=== PATIENT | male | born 1990 | race Caucasian/White ===

== ENCOUNTER → 2019-08-18 08:33 | Outpatient (CLI) | payer BC, SELFPAY ==
--- NOTE | 2019-08-18 08:37 | XR_ITS ---
PROCEDURE: XR KNEE LT 4V CLINICAL INDICATION: lt knee pain; weightbearing COMPARISON: XR KNEE LT 3V from 07/31/2019 FINDINGS: No fracture or dislocation. No lytic or blastic change. There is normal mineralization. There are mild osteoarthritic changes involving all 3 compartments Other findings:Small calcific density along the anterior aspect patella at the quadriceps insertion which may reflect sequela from old injury IMPRESSION: Mild osteoarthritis not significantly changed Dictated by: Yunier Casiano MD 08/18/2019 13:15 Electronically signed by Yunier Casiano MD in [place] 08/18/2019 13:15
== END ==
PROVIDERS: PCP Internal Medicine; Visit Provider Orthopaedic Surgery
DX: M25.562 Pain in left knee (principal)
CPT/HCPCS: 73564

== ENCOUNTER 2020-02-25 17:02 | Emergency (ER) | payer BC, SELFPAY ==
[2020-02-25 17:44] VITALS: BP 136/81; PULSE 104; RESP 20; TEMP 37.6; O2SAT 100; BMI 38.9
--- NOTE | 2020-02-25 17:44 | HMH.EDUTC ---
[facility] [place] Clinical Impression: Viral syndrome Sinusitis Qualifiers: Sinusitis location: unspecified location Chronicity: acute Recurrence: non-recurrent Qualified Code(s): J01.90 - Acute sinusitis, unspecified Disposition: Home, Self-Care Condition on Discharge: Good Instructions: Sinusitis, DI for Sinusitis Additional Instructions: Drink plenty of fluids. Take tylenol or ibuprofen for pain or fever. Take the medications as directed. Follow up with your regular doctor. GO TO THE ER FOR ANY WORSENING SYMPTOMS Prescriptions: Benzonatate [Tessalon Perle 100mg Cap] 100 mg PO TIDP PRN #30 cap PRN Reason: Cough Transmission Status: Received by [id number] Azithromycin [Z-Kvng 250mg Tab*] 250 mg PO UD DOSE PK #6 tab Transmission Status: Received by [id number] Referrals: Abdulaziz Vidal [Primary Care Provider] - Forms: Work/School Release Time of Disposition: 17:59 Medical Decision Making - Medical Records Medical records reviewed: No: I reviewed the patient's medical records. - Issac Inquiry Pt receiving controlled substance: No Vital Signs: 02/25/20 17:44 02/25/20 18:05 Temperature 99.7 F H 99.7 F H Temperature Source Oral Pulse Rate 104 H Pulse Rate [Right Brachial] 104 H Respiratory Rate 20 20 Blood Pressure 136/81 Blood Pressure [Right Arm] 136/81 Blood Pressure Mean [Right Arm] 99 Blood Pressure Source [Right Arm] Automatic Cuff Blood Pressure Position [Right Arm] Sitting 02 Sat by Pulse Oximetry 100 Oxygen Delivery Method Room Air Orders (Tests/Meds): ORDERS Category Date Time Status Covid-19 Nasal PCR ([facility]) Routine Lab 02/25/20 17:40 [place] [facility] [place] - General Stated complaint: Covid test Time Seen by Provider: 02/25/20 17:44 - History of Present Illness Provider Complaint: He complains of having body aches, feeling very bad, having sinus congestion and a cough since last night. He denies any definite covid exposure, but he works at [employer] so he is around a lot of people. - Related Data Previous Rx's Medication Instructions Recorded Azithromycin [Z-Kvng 250mg Tab*] 250 mg PO UD DOSE PK #6 tab 02/25/20 Benzonatate [Tessalon Perle 100mg 100 mg PO TIDP PRN #30 cap 02/25/20 Cap] Allergies Allergy/AdvReac Type Severity Reaction Status Date / Time No Known Allergies Allergy Verified 08/18/19 09:22 [facility] History - Hepatitis A Screen Attestation statement:: This patient has been screened for Hepatitis A risk factors. I have reviewed the patient's past medical history: Yes Medical History: Denies:: Diabetes Mellitus Type 1, Seizures Other Medical History: Reports: Other Other Surgeries: Yes: No Previous Surgery, Other Comment: excision of pilonidal cyst 2007/2008. [place] teeth - Social History Smoking Status: Never smoker Tobacco Type: smokeless tobacco # Packs/Day (cigarettes): 0 Alcohol Intake: never Alcohol Intake Frequency:: holidays/special occasions only Substance Use Type: denies use Occupational Status: other Household Members: spouse Family Hx:: Cancer, Diabetes, Coronary Artery Disease ROS Obtained: Yes All systems reviewed & no additional complaints - Constitutional Constitutional: Reports chills, Reports fever(s), Reports poor appetite, Reports malaise - Eyes Eyes: Denies eye discharge - ENT Ears, Nose, Mouth, and Throat: Reports system reviewed and no additional complaints, except as docu - Cardiovascular Cardiovascular: Reports system reviewed and no additional complaints, except as docu - Respiratory Respiratory: Yes chest congestion, Yes cough - Gastrointestinal Gastrointestingal: Reports: nausea. Denies: abdominal pain, diarrhea, vomiting Physical Exam - General General appearance: alert, in no apparent distress - Head Head exam: atraumatic, normocephalic, normal inspection - Eye Eye exam: Present: normal appearance, PERRL, EOMI - ENT ENT exam: Pres
[2020-02-25 18:05] VITALS: BP 136/81; PULSE 104; RESP 20; TEMP 37.6; O2SAT 100
== END 2020-02-25 18:08 | disposition home or self-care (01) ==
PROVIDERS: Emergency Provider Nurse Practitioner Family; PCP Internal Medicine
DX: Z20.828 Contact with and (suspected) exposure to other viral communicable diseases (principal); B34.9 Viral infection, unspecified; J01.90 Acute sinusitis, unspecified
CPT/HCPCS: 99201; U0003

== ENCOUNTER 2020-10-14 07:23 | Emergency (ER) | payer BC, SELFPAY ==
[2020-10-14 07:24] VITALS: BP 157/84; PULSE 78; RESP 16; TEMP 36.7; O2SAT 98; BMI 41.3
--- NOTE | 2020-10-14 07:41 | XR_ITS ---
PROCEDURE INFORMATION: Exam: XR Right Wrist Exam date and time: 10/14/2020 7:41 AM Age: 30 years old Clinical indication: Patient HX: No definite injury; Right wrist pain, radial side TECHNIQUE: Imaging protocol: XR Right wrist. Views: 3 or more views. COMPARISON: No relevant prior studies available. FINDINGS: Bones/joints: There is no evidence of acute fracture.There is no evidence of malalignment or dislocation. Soft tissues: Normal. IMPRESSION: There is no evidence of acute fracture.There is no evidence of malalignment or dislocation.
--- NOTE | 2020-10-14 08:04 | HMH.EDUPEXT ---
ED Disposition Clinical Impression: Sprain of wrist, right Qualifiers: Encounter type: initial encounter Qualified Code(s): S63.501A - Unspecified sprain of right wrist, initial encounter Disposition: Home, Self-Care Condition on Discharge: Good Instructions: DI for Wrist Strain Additional Instructions: wear splint and use meds and see pcp for follow up Prescriptions: predniSONE [Prednisone 20mg Tab] 20 mg PO BID #10 tab Transmission Status: Pending to [facility] Ketorolac Tromethamine [Toradol 10mg tablet] 10 mg PO Q6HP PRN #8 tab MDD 40mg/day PRN Reason: Moderate To Severe Pain Transmission Status: Pending to [facility] Referrals: Abdulaziz Vidal [Primary Care Provider] - - Critical Care Critical Care Time: No Attestation: On 10/14/20, the high probability of a clinically significant, sudden or life threatening deterioration of the following system(s) required my full and direct attention, intervention and personal management. The time I documented below is in addition to time spent performing reported procedures but includes the following listed in this critical care notation. Medical Decision Making - Medical Records Medical records reviewed: Yes: I reviewed the patient's medical records. - Issac Inquiry Pt receiving controlled substance: No Vital Signs: 10/14/20 07:24 Temperature 98.1 F Temperature Source Oral Pulse Rate [Right] 78 Respiratory Rate 16 Blood Pressure [Right Arm] 157/84 H Blood Pressure Mean [Right Arm] 108 02 Sat by Pulse Oximetry 98 Oxygen Delivery Method Room Air - Lab Data Lab results reviewed: Yes: I reviewed the patient's lab results. Orders (Tests/Meds): ED MEDICATIONS Discontinued Medications Generic Name Dose Route Start Last Admin Trade Name Freq PRN Reason Stop Dose Admin Dexamethasone Sodium Phosphate 8 mg 10/14/20 08:07 10/14/20 08:12 Dexamethasone 4mg/Ml 1ml Vial IM 10/14/20 08:08 8 mg ONCE ONE Administration Ketorolac Tromethamine 60 mg 10/14/20 08:08 10/14/20 08:11 Ketorolac 60mg/2ml Vial IM 10/14/20 08:09 60 mg ONCE ONE Administration ORDERS Category Date Time Status XR wrist RT min 3V Stat Exams 10/14/20 07:41 Taken - Radiology Data #1 Image(s): Wrist Image Reviewed: Yes I reviewed the patient's radiology image w/the ED provider Preliminary Findings: No Fracture Seen Medical Decision Narrative: pt with overuse injury rt wrist at work - will splint and use meds - and workman comp forms completed Upper Extremity HPI - General Chief Complaint: Extremity Injury, Upper Stated Complaint: Rt wrist pain, no accident Time Seen by Provider: 10/14/20 07:50 Mode of Arrival: Family Vehicle Source of Information: Patient, Medical Record Limitations: No Limitations Description of Symptoms (Recalled from ER Triage Doc. by RN): Patient c/o right wrist pain for the last two days w/o any identifiable injury. 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 Upon assessment, patient has swelling on the distal side of his right wrist and reports pain that radiates to his hand. - History of Present Illness HPI narrative: wrist injury at work using wrench and has pain to rt lat wrist - MD complaint: injury to: right, wrist Onset (ago): hour(s) Other Extremity Injury: Right: wrist Handedness: right Place: work Severity: moderate Relieving factors: movement Exacerbating factors: movement of extremity Context: other (injured at work ) Associated symptoms: denies other symptoms - Related Data Previous Rx's Medication Instructions Recorded Azithromycin [Z-Kvng 250mg Tab*] 250 mg PO UD DOSE PK #6 tab 02/25/20 Benzonatate [Tessalon Perle 100mg 100 mg PO TIDP PRN #30 cap 02/25/20 Cap] Ketorolac Tromethamine [Toradol 10 mg PO Q6HP PRN #8 tab MDD 10/14/20 10mg tablet] 40mg/day predniSONE [Prednisone 20mg 20 mg PO BID #10 tab 10/14/20 Tab
[2020-10-14 08:40] VITALS: BP 129/80; PULSE 84; RESP 17; TEMP 36.8; O2SAT 99
== END 2020-10-14 08:46 | disposition home or self-care (01) ==
PROVIDERS: Emergency Provider Emergency Medicine; PCP Internal Medicine
DX: S63.501A Unspecified sprain of right wrist, initial encounter (principal); X50.3XXA Overexertion from repetitive movements, initial encounter; Y92.89 Other specified places as the place of occurrence of the external cause
CPT/HCPCS: 73110; 99282

== ENCOUNTER → 2023-04-01 16:06 | Outpatient (CLI) | payer BC, SELFPAY ==
[2023-04-01 13:52] LABS: Basophils # 0.1 K/mm3 (0-0.2); Basophils % 0.8 % (0.1-2.0); Eosinophils # 0.2 K/mm3 (0.0-0.4); Eosinophils % 2.1 % (0.1-12.0); Hematocrit 44.6 % (42.0-52.0); Hemoglobin 15.1 g/dL (14.1-18.0); Lymphocytes # 1.9 K/mm3 (0.7-4.5); Lymphocytes % 24.8 % (10-50); Mean Corpuscular HGB Conc 33.9 g/dL (31.8-35.4); Mean Corpuscular Hemoglobin 31.1 pg (27.0-31.2); Mean Corpuscular Volume 91.7 fl (80-94); Mean Platelet Volume 8.3 fl (7.4-10.4); Monocytes # 0.5 K/mm3 (0.1-1.0); Monocytes % 6.1 % (1.7-9.3); Neutrophils # 4.9 K/mm3 (1.8-7.8); Neutrophils % 66.1 % (37.0-80.0); Platelet Count 294 K/mm3 (142-424); Red Blood Count 4.86 M/mm3 (4.60-6.20); Red Cell Distribution Width 13.6 % (11.5-17.5); White Blood Count 7.4 K/mm3 (4.8-10.8)
[2023-04-01 14:29] LABS: Hemoglobin A1C 6.5 % (4.0-6.0)
[2023-04-01 14:41] LABS: Alanine Aminotransferase 108 U/L (12-78); Albumin Level 4.6 g/dl (3.5-5.0); Albumin/Globulin Ratio 1.4 (1.1-1.8); Alkaline Phosphatase 76 U/L (38-126); Anion Gap 14.7 mEq/L (5-15); Aspartate Amino Transferase 98 U/L (17-59); Bilirubin,Total 0.7 mg/dl (0.2-1.3); Blood Urea Nitrogen 14 mg/dl (9-20); Calcium 8.8 mg/dl (8.4-10.2); Carbon Dioxide 28 mmol/L (22.0-30.0); Chloride 99 mmol/L (98-107); Chol/HDL Ratio 6.8 (1-3.5); Cholesterol 230 mg/dl (140-200); Estimated Glomerular Filt Rate 86 ml/min (>60); GFR (African American) 104 ML/MIN (>60); Globulin 3.3 g/dL (1.3-3.2); Glucose 102 mg/dl (74-100); HDL Cholesterol 34 mg/dl (40-60); Potassium 4.7 mmoL/L (3.5-5.1); Sodium 137 mmol/L (136-145); Total Protein,Serum 7.9 g/dl (6.3-8.2); Triglycerides 242 mg/dl (30-150); VLDL Cholesterol 48 mg/dL (0-40)
[2023-04-01 14:52] LABS: Direct LDL Cholesterol 145.49 mg/dL (100-129)
[2023-04-01 15:00] LABS: Free T4 (Free Thyroxine) 1.09 ng/dl (0.78-2.19)
[2023-04-01 15:03] LABS: 25-OH Vitamin D, Total 32.3 ng/mL (30-100)
[2023-04-01 15:16] LABS: Thyroid Stimulating Hormone 1.44 uIU/mL (0.465-4.68)
== END ==
PROVIDERS: PCP Internal Medicine; Visit Provider Internal Medicine
DX: Z00.00 Encounter for general adult medical examination without abnormal findings (principal); Z13.21 Encounter for screening for nutritional disorder; Z13.29 Encounter for screening for other suspected endocrine disorder; Z13.220 Encounter for screening for lipoid disorders; Z13.1 Encounter for screening for diabetes mellitus; Z68.41 Body mass index [BMI] 40.0-44.9, adult
CPT/HCPCS: 80053; 80061; 82306; 83036; 84439; 84443; 85025

== ENCOUNTER → 2023-04-28 13:50 | Outpatient (CLI) | payer BC, SELFPAY ==
[2023-04-28 15:04] VITALS: BMI 43.8
== END ==
PROVIDERS: PCP Internal Medicine; Visit Provider Internal Medicine
DX: E66.01 Morbid (severe) obesity due to excess calories (principal); Z68.41 Body mass index [BMI] 40.0-44.9, adult
CPT/HCPCS: 97802

== ENCOUNTER 2023-07-03 11:47 | Outpatient (CLI) | payer BC, SELFPAY ==
[2023-07-03 15:34] LABS: Semen Viscosity Stringy (Normal); Sperm Count 44 mil/mm3 (20-160); Volume,Semen 3.5 ml (2.0-5.0); WBCs,Semen Negative
[2023-07-03 15:35] LABS: 3Hr Motility Quality Weak Progression (Mod-Rapid); 3Hr Sperm Motility 60 % (50-60); Motility Quality Moderate Progression (Mod-Rapid); Sperm Motility 65 % (50-90)
== END 2023-07-03 23:59 ==
LOC: LAB 11:48
PROVIDERS: PCP Internal Medicine; Visit Provider Obstetrics & Gynecology
DX: Z31.41 Encounter for fertility testing (principal)
CPT/HCPCS: 89320

== ENCOUNTER 2024-07-09 08:37 | Outpatient (CLI) | payer BC, SELFPAY ==
[2024-07-09 09:34] LABS: Chol/HDL Ratio 4.9 (1-3.5); Cholesterol 193 mg/dl (140-200); HDL Cholesterol 39 mg/dl (40-60); Triglycerides 157 mg/dl (30-150); VLDL Cholesterol 31 mg/dL (0-40)
[2024-07-09 10:09] LABS: Hemoglobin A1C 5.5 % (4.0-6.0)
[2024-07-19 02:47] LABS: Testosterone, Total, LC/MS 392 ng/dL (.)
== END 2024-07-09 23:59 | disposition home or self-care (01) ==
LOC: LAB 08:38
PROVIDERS: PCP Internal Medicine; Visit Provider Internal Medicine
DX: Z13.220 Encounter for screening for lipoid disorders (principal); E11.9 Type 2 diabetes mellitus without complications; R53.83 Other fatigue
CPT/HCPCS: 36415; 80061; 83036; 84403